=== PATIENT | female | born 1985 | race Caucasian/White ===

== ENCOUNTER → 2016-05-13 | Outpatient (CLI) | payer OTHER | END | disposition home or self-care (01) | LOC: CVU 12:26 | PROVIDERS: ATTEND Internal Medicine Cardiovascular Disease | DX: I08.1 Rheumatic disorders of both mitral and tricuspid valves (principal) | CPT/HCPCS: 93306 ==

== ENCOUNTER 2016-07-18 08:21 | Inpatient (IN) | payer OTHER ==
[~2016-07-18] VITALS: Ht 162.6 cm; Wt 60.0 kg
[2016-07-18] MEDS: LACTATED RINGERS 1,000 ML IV SCH ×4 (07:10→14:00)
[2016-07-18] MEDS: OXYTOCIN 30U/ 0.9% NaCL 500ML 500 ML IV SCH ×2 (07:58→18:05)
[~2016-07-18 08:21] MED LIST: LIDOCAINE 1%, 20ML ONE; MISOPROSTOL 200 MCG TABLET ONE; NEWBORN KIT ONE; OXYTOCIN 30U/ 0.9% NaCL 500ML 500 ML ONE
[2016-07-18] MEDS ORDERED: FENTANYL PF 100 MCG/2ML ONE (10:02)
[2016-07-18] MEDS ORDERED: FENTANYL/BUPIV./NS/PF 250 ML EPIDCONT ONE (10:02)
[2016-07-18] MEDS ORDERED: BUPIVACAINE 0.25% ONE (10:03)
[2016-07-18] MEDS: PENICILLIN GK 2,500,000 UNITS in DEXTROSE 5% 100 ML IV SCH ×5 (11:22→20:00)
[2016-07-18] MEDS ORDERED: OXYTOCIN 30U/ 0.9% NaCL 500ML 500 ML IV PRN (12:00)
[2016-07-18] MEDS ORDERED: IBUPROFEN 600 MG TABLET ONE ×2 (17:57→22:06)
[2016-07-18] MEDS ORDERED: OXYTOCIN 30U/ 0.9% NaCL 500ML 500 ML ONE (17:57)
[2016-07-18] MEDS ORDERED: DOCUSATE 100 MG CAPSULE ONE (22:07)
[2016-07-18] MEDS: IBUPROFEN 600 MG TABLET PO PRN (23:30)
[2016-07-18] MEDS: DOCUSATE 100 MG CAPSULE PO PRN (23:30)
[2016-07-19] MEDS: PENICILLIN GK 2,500,000 UNITS in DEXTROSE 5% 100 ML IV SCH ×6 (04:00→20:00)
[2016-07-19] MEDS ORDERED: IBUPROFEN 600 MG TABLET ONE ×2 (05:52→12:42)
[2016-07-19] MEDS: IBUPROFEN 600 MG TABLET PO PRN ×3 (06:05→19:37)
[2016-07-19] MEDS ORDERED: PRENATAL VIT/IRON/FA 1 EACH TABLET ONE (08:24)
[2016-07-19] MEDS: PRENATAL VIT/IRON/FA 1 EACH TABLET PO SCH (08:25)
[2016-07-19] MEDS ORDERED: DOCUSATE 100 MG CAPSULE ONE (08:25)
[2016-07-19] MEDS: DOCUSATE 100 MG CAPSULE PO PRN ×2 (08:25→19:37)
[2016-07-19 12:30] VITALS: BP 111/79
[2016-07-19] MEDS ORDERED: OXYcodone/APAP 5/325MG TABLET ONE (12:43)
[2016-07-19] MEDS: OXYTOCIN 30U/ 0.9% NaCL 500ML 500 ML IV SCH (15:21)
[2016-07-19] MEDS ORDERED: ONDANSETRON 2MG/ML, 2ML IV PRN (15:30)
[2016-07-19] MEDS ORDERED: RHOGAM FROM BLOOD BANK 1 NOTE EA IM/IV ONE (15:30)
[2016-07-19] MEDS ORDERED: MISOPROSTOL 200 MCG TABLET PR PRN (15:30)
[2016-07-19] MEDS ORDERED: ACETAMINOPHEN 325 MG TABLET PO PRN (15:30)
[2016-07-19 16:05] VITALS: BP 117/75
[2016-07-19] MEDS: HYDROcodone/APAP 5/325 TABLET PO PRN ×2 (17:06→21:43)
[2016-07-19 20:30] VITALS: BP 108/70
[2016-07-20] MEDS: OXYTOCIN 30U/ 0.9% NaCL 500ML 500 ML IV SCH ×2 (01:21→11:21)
[2016-07-20] MEDS ORDERED: PENICILLIN GK 5,000,000 UNITS in DEXTROSE 5% 100 ML IV ONE (02:30)
[2016-07-20] MEDS ORDERED: OXYcodone/APAP 5/325MG TABLET PO PRN (02:30)
[2016-07-20] MEDS: IBUPROFEN 600 MG TABLET PO PRN ×2 (03:16→08:30)
[2016-07-20] MEDS: PENICILLIN GK 2,500,000 UNITS in DEXTROSE 5% 100 ML IV SCH ×2 (04:00)
[2016-07-20 07:22] VITALS: BP 101/63
[2016-07-20] MEDS: HYDROcodone/APAP 5/325 TABLET PO PRN ×2 (08:30→12:36)
[2016-07-20] MEDS: DOCUSATE 100 MG CAPSULE PO PRN (08:30)
[2016-07-20] MEDS: PRENATAL VIT/IRON/FA 1 EACH TABLET PO SCH (09:00)
[2016-07-20] MEDS ORDERED: IBUP-1222 PO (14:16)
[2016-07-20] MEDS ORDERED: OXYC-302 PO (14:18)
== END 2016-07-20 15:25 | disposition home or self-care (01) | DRG 775 ==
LOC: 2NW 16:59
PROVIDERS: ADMIT Obstetrics & Gynecology; ATTEND Obstetrics & Gynecology
PROC: 10E0XZZ Delivery of Products of Conception, External Approach (ICD-10-PCS; principal; 2016-07-18)
PROC: 10907ZC Drainage of Amniotic Fluid, Therapeutic from Products of Conception, Via Natural or Artificial Opening (ICD-10-PCS; 2016-07-18)
PROC: 3E033VJ Introduction of Other Hormone into Peripheral Vein, Percutaneous Approach (ICD-10-PCS; 2016-07-18)
PROC: 0HQ9XZZ Repair Perineum Skin, External Approach (ICD-10-PCS; 2016-07-18)
PROC: 00HU33Z Insertion of Infusion Device into Spinal Canal, Percutaneous Approach (ICD-10-PCS; 2016-07-18)
PROC: 3E0R3CZ (ICD-10-PCS; 2016-07-18)
DX: O99.824 Streptococcus B carrier state complicating childbirth (principal); Z37.0 Single live birth; O71.7 Obstetric hematoma of pelvis; Z3A.39 39 weeks gestation of pregnancy
CPT/HCPCS: 36415; 85025; 86850; 86900; J2540; J2590; J3010; J7120